=== PATIENT | female | born 1970 | race Caucasian/White ===

== ENCOUNTER 2017-11-20 23:04 | Emergency (ER) | payer MEDICAID ==
[~2017-11-20] VITALS: Ht 154.9 cm; Wt 81.0 kg
[2017-11-20 23:11] VITALS: BP 115/73
== END 2017-11-21 00:28 | disposition home or self-care (01) ==
LOC: ED 23:59
DX: L50.9 Urticaria, unspecified (principal)
CPT/HCPCS: 99281